=== PATIENT | male | born 1990 | race Caucasian/White ===

== ENCOUNTER 2018-09-29 20:33 | Emergency (ER) | payer OTHER ==
[~2018-09-29] VITALS: Ht 190.5 cm; Wt 118.8 kg
[2018-09-29 20:50] VITALS: BP_SYST 147
[2018-09-29] MEDS ORDERED: ONDANSETRON 4 MG ODT TAB PO ONE (22:15)
[2018-09-29] MEDS ORDERED: fentaNYL CITRATE/PF 100 MCG/2 ML AMP IM ONE (22:15)
[2018-09-29] MEDS ORDERED: KETOROLAC TROMETHAMINE 60 MG/2 ML VIAL IM ONE (22:15)
[2018-09-29] MEDS ORDERED: LORazepam 1 MG TABLET PO ONE (23:45)
[2018-09-29 23:57] VITALS: BP_SYST 147
== END 2018-09-29 23:57 | disposition home or self-care (01) ==
LOC: SED 20:33
DX: M25.512 Pain in left shoulder (principal); F41.9 Anxiety disorder, unspecified; R03.0 Elevated blood-pressure reading, without diagnosis of hypertension; F43.10 Post-traumatic stress disorder, unspecified; Z90.89 Acquired absence of other organs
CPT/HCPCS: 73030; 96372; 99283; J1885; J3010; Q0162